=== PATIENT | male | born 1965 ===

== ENCOUNTER 2019-08-29 18:08 | Emergency (ER) | payer MEDICARE ==
[~2019-08-29] VITALS: Ht 172.7 cm; Wt 104.3 kg
[2019-08-29] MEDS ORDERED: PLAVIX75 MG PO (18:35)
[2019-08-29] MEDS ORDERED: TECFIDERA240 MG PO (18:36)
[2019-08-29] MEDS ORDERED: TOPROL XL50 MG PO (18:36)
[2019-08-29] MEDS ORDERED: HYDROCHLOROTHIA25 MG PO (18:37)
[2019-08-29] MEDS ORDERED: ZESTRIL40 MG PO (18:37)
[2019-08-29] MEDS ORDERED: NORVASC5 MG PO (18:37)
== END 2019-08-29 19:04 | disposition home or self-care (01) ==
LOC: ED 18:08
DX: S06.0X1A Concussion with loss of consciousness of 30 minutes or less, initial encounter (principal); S00.03XA Contusion of scalp, initial encounter; I10 Essential (primary) hypertension; F17.200 Nicotine dependence, unspecified, uncomplicated; I25.2 Old myocardial infarction; X58.XXXA Exposure to other specified factors, initial encounter
CPT/HCPCS: 70450; 99284-25